=== PATIENT | female | born 1950 | race Caucasian/White ===

== ENCOUNTER → 2018-01-17 | Outpatient (CLI) | payer MEDICARE, OTHER | LOC: SUN.DIA 14:15 | DX: E11.9 Type 2 diabetes mellitus without complications (principal); E78.5 Hyperlipidemia, unspecified; I10 Essential (primary) hypertension; E66.9 Obesity, unspecified; Z68.33 Body mass index [BMI] 33.0-33.9, adult; Z71.3 Dietary counseling and surveillance | CPT/HCPCS: G0108 ==

== ENCOUNTER 2020-06-25 10:07 | Emergency (ER) | payer MEDICARE, OTHER ==
[~2020-06-25] VITALS: Ht 167.6 cm; Wt 94.5 kg
[2020-06-25 10:21] VITALS: TEMP 97.4
[2020-06-25 13:33] LABS: BASO % 0.2 % (0.0-2.0); EOS % 0.1 % (0-4.0); GRAN # 11.5 (1.4-6.5); GRAN % 88.4 % (42.2-75.2); HEMATOCRIT 38.4 % (37.0-47.0); HEMOGLOBIN 12.6 g/dl (12.5-16.0); LYMPH # 1.2 (1.2-3.4); LYMPH % 8.9 % (20.0-51.0); MEAN CELL VOLUME 96 fl (80.0-100.0); MEAN CORPUSCULAR HEMOGLOBIN 31 pg (27.0-31.0); MEAN CORPUSCULAR HGB CONC 33 g/dl (33.0-37.0); MONO # 0.3 (0.1-0.6); MONO % 2.1 % (1.7-9.3); PLATELET COUNT 259 K/mm3 (130-400); RED BLOOD COUNT 4.02 M/mm3 (4.10-5.30); REDCELL DISTRIBUTION WIDTH-CV 13.6 % (11.5-14.5)
[2020-06-25 13:54] LABS: ALANINE AMINOTRANSFERASE 22 U/L (4-34); ALKALINE PHOSPHATASE 106 U/L (50-136); ANION GAP 5 mmol/L (7-16); AST,SGOT 22 U/L (15-37); BILIRUBIN,TOTAL 0.4 mg/dL (0.0-1.0); BLOOD UREA NITROGEN 13 mg/dL (7-17); C-REACTIVE PROTEIN 0.7 mg/dL (0.0-0.9); CARBON DIOXIDE 27 mmol/L (22-30); CHLORIDE 104 mmol/L (98-107); CREATININE, serum 0.83 (0.52-1.25); GLUCOSE 250 mg/dL (74-106); POTASSIUM 4.2 mmol/L (3.4-5.0); SODIUM 137 mmol/L (137-145); TOTAL PROTEIN 7.2 gm/dL (6.4-8.2)
[2020-06-25 14:01] LABS: COLLECTION METHOD CLEAN CATCH
[2020-06-25 14:11] LABS: PH 7 (5-8); SQUAMOUS EPITHELIAL None Seen /hpf; URINE APPEARANCE Clear; URINE BACTERIA Rare /hpf; URINE BILIRUBIN Negative (NEGATIVE); URINE BLOOD Negative (NEGATIVE); URINE COLOR Yellow; URINE GLUCOSE 1+ (NEGATIVE); URINE KETONE Negative (NEGATIVE); URINE LEUKOCYTE ESTERASE Negative (NEGATIVE); URINE NITRATE Negative (NEGATIVE); URINE PROTEIN(semi-quant) Negative (NEGATIVE); URINE RBC 0-2 /hpf; URINE UROBILINOGEN Negative (NEGATIVE)
[2020-06-25 14:34] LABS: TROPONIN-I < 0.012 ng/mL (0.000-0.035)
[2020-06-25] MEDS ORDERED: PREDNISONE20 MG PO (17:41)
[2020-06-25 17:52] VITALS: BP 150/76; PULSE 66
== END 2020-06-25 18:11 | disposition home or self-care (01) ==
LOC: COL.ER 10:07
PROVIDERS: Physician Assistant
DX: R55 Syncope and collapse (principal); J03.90 Acute tonsillitis, unspecified; Z88.2 Allergy status to sulfonamides; Z90.710 Acquired absence of both cervix and uterus
CPT/HCPCS: C1751; J7030; J7512

== ENCOUNTER → 2020-06-25 | Outpatient (CLI) | payer MEDICARE, OTHER ==
[~2020-06-25] MED LIST: PREDNISONE20 MG PO
== END ==
LOC: COL.LAB 09:31 → COL.RAD 09:41 → COL.LAB 09:41
DX: R91.1 Solitary pulmonary nodule (principal); J03.90 Acute tonsillitis, unspecified
CPT/HCPCS: Q9967